=== PATIENT | male | born 2000 | race Two or more races ===

== ENCOUNTER 2024-05-03 02:53 | Emergency (ER) | payer SELFPAY ==
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
[2024-05-03 03:09] VITALS: BP 132/72; PULSE 87; RESP 18; TEMP 37; O2SAT 99; BMI 22.9
== END 2024-05-03 03:23 ==
LOC: SERX 03:20
PROVIDERS: Emergency Provider Emergency Medicine
DX: Z02.89 Encounter for other administrative examinations (principal)
CPT/HCPCS: 99281